=== PATIENT | female | born 1960 | race Caucasian/White ===

== ENCOUNTER 2016-11-29 18:14 | Emergency (ER) | payer MEDICARE, MEDICAID ==
[2016-11-29 18:34] VITALS: BP 120/84
[2016-11-29] MEDS ORDERED: Sodium Chloride 0.9% 10 ML Syringe FLUSH PRN (19:04)
[2016-11-29] MEDS ORDERED: Alum Hydrox/Mag Hydrox/Simeth 30 ML, Lidocaine 2% 15 ML PO ONE ×2 (19:05)
[2016-11-29] MEDS ORDERED: Ondansetron 4 MG/2 ML SDV IVPUSH ONE (19:05)
--- NOTE | 2016-11-29 19:11 | EDM.PDOC ---
ED HPI GENERAL MEDICAL PROBLEM - General Chief Complaint: Abdominal Pain Stated Complaint: ABDOMINAL PAIN Time Seen by Provider: 11/29/16 18:55 Source of Information: Reports: Patient History Limitations: Reports: No Limitations - History of Present Illness INITIAL COMMENTS - FREE TEXT/NARRATIVE: 55 year old female presents for evaluation and treatment of epigastric pain. Reports pain for several weeks. She saw her primary care provider about one week was prescribed some Zofran for nausea. She reports associated symptoms of nausea and vomiting. Which has been vomiting one to 2 times per week. She states over the last few days her epigastric pain has worsened. She states that today she had lunch with friend. She had a few cocktails with lunch and states that this significantly increased the epigastric pain. She describes this as a stabbing pain. Last intake was around 2:30 or 3 this afternoon. She took some nausea medications prior to arrival in the ER. She denies any fevers, chest pain , shortness of breath or diarrhea. His past medical history of acid reflux. She has had this evaluated before with an EGD. She has had a colonoscopy before. Patient also reports past medical history of chronic neck and back pain. She also has a history of fibromyalgia. Location: Reports: Abdomen (epigastric) epigastric Pain Score (Numeric/FACES): 8 - Related Data Allergies Allergy/AdvReac Type Severity Reaction Status Date / Time No Known Allergies Allergy Verified 11/29/16 18:34 Home Meds: Home Meds Gabapentin [Gabapentin] 1 tab PO ASDIRECTED 11/29/16 [History] Hydrocodone/Acetaminophen [Hydrocodon-Acetaminophn 10-325] 1 - 2 tab PO Q6H [History] Morphine [MS Contin] 15 mg PO Q12HR 11/29/16 [History] Rivaroxaban [Xarelto] 1 tab PO BEDTIME 11/29/16 [History] atorvaSTATin Calcium [Atorvastatin Calcium] 1 tab PO DAILY 11/29/16 [History] clonazePAM [Clonazepam] 1 tab PO BID 11/29/16 [History] tiZANidine [Zanaflex] 4 mg PO Q8H 11/29/16 [History] Past Medical History Cardiovascular History: Reports: High Cholesterol, Other (See Below) Other Cardiovascular History: right heart failure 2007 Respiratory History: Reports: Bronchitis, Recurrent Gastrointestinal History: Reports: GERD, Other (See Below) Other Gastrointestinal History: chronic nausea Genitourinary History: Reports: UTI, Recurrent, Other (See Below) Other Genitourinary History: Kidney failure 2007 Musculoskeletal History: Reports: Fibromyalgia, Neck Pain, Chronic, SLE Neurological History: Reports: Headaches, Chronic, Other (See Below) Other Neuro History: cluster headaches Psychiatric History: Reports: Anxiety Hematologic History: Reports: Other (See Below) Other Hematologic History: Xarelto use Immunologic History: Reports: SLE - Past Surgical History Female Surgical History: Reports: Hysterectomy Musculoskeletal Surgical History: Reports: Other (See Below) Other Musculoskeletal Surgeries/Procedures:: L4-L5, scoliosis, deteriorated disc , neck surgery C5,6,7 in December 2015 Social & Family History - Family History Family Medical History: Noncontributory - Tobacco Use Smoking Status *Q: Current Every Day Smoker Years of Tobacco use: 30 Packs/Tins Daily: 0.5 - Caffeine Use Caffeine Use: Reports: Coffee - Recreational Drug Use Recreational Drug Use: No ED ROS GENERAL - Review of Systems Review Of Systems: See Below Constitutional: Denies: Fever Respiratory: Denies: Shortness of Breath Cardiovascular: Denies: Chest Pain GI/Abdominal: Reports: Abdominal Pain (epigastric), Nausea, Vomiting (1-2 per week). Denies: Diarrhea Musculoskeletal: Reports: Neck Pain (chronic), Back Pain (chronic) ED EXAM, GI/ABD - Physical Exam Exam: See Below Exam Limited By: No Limitations General Appearance: Alert, WD/WN, No Apparent Distress, Severe Distress, Other ( smells of alcohol) Respiratory/Chest: No Respiratory Distress, Lungs Clear, Normal Breath Sounds Cardiovascular: Normal Peripheral Pulses, Regular Rate, Rhythm, No Murmur GI/Abdominal: Normal Bowel Sounds, Soft, Guarding, Other (epigastric tenderness) Course - Vital Signs Last Recorded V/S: Last Vital Signs Temp 36.4 C 11/29/16 18:25 Pulse 81 11/29/16 18:25 Resp 16 11/29/16 18:25 BP 120/84 11/29/16 18:25 Pulse Ox 96 11/29/16 18:25 - Orders/Labs/Meds Orders: Active Orders 24 hr Category Date Time Status Cardiac Monitoring [RC] . DIRECTED Care 11/29/16 19:05 Active EKG 12 Lead [EKG Documentation Completion] [RC] STAT Care 11/29/16 19:04 Active Peripheral IV Care [RC] . DIRECTED Care 11/29/16 19:04 Active Blood Alcohol [ETHANOL BLOOD MEDICAL] [CHEM] Stat Lab 11/29/16 19:04 Ordered C-REACTIVE PROTEIN [CHEM] Stat Lab 11/29/16 19:04 Ordered CBC WITH AUTO DIFF [HEME] Stat Lab 11/29/16 19:04 Ordered COMPREHENSIVE METABOLIC PN,CMP [CHEM] Stat Lab 11/29/16 19:04 Ordered LIPASE [CHEM] Stat Lab 11/29/16 19:04 Ordered Peripheral IV Insertion Adult [OM.PC] Routine Oth 11/29/16 19:04 Ordered Meds: Medications Discontinued Medications Generic Name Dose Route Start Last Admin Trade Name Freq PRN Reason Stop Dose Admin Al Hydroxide/Mg Hydroxide 30 0 ml 11/29/16 19:05 ml/ Lidocaine HCl 15 ml PO 11/29/16 19:06 ONETIME ONE Ondansetron HCl 4 mg 11/29/16 19:05 Zofran IVPUSH 11/29/16 19:06 ONETIME ONE Sodium Chloride 10 ml 11/29/16 19:04 Saline Flush FLUSH ASDIRECTED PRN Keep Vein Open - Re-Assessments/Exams Free Text/Narrative Re-Assessment/Exam: 11/29/16 19:12 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 She wants to sign out AMA. She lives in [place] therefore to return to the ER will take a few hours. She has not had any imaging, EKG or labs done. Patient signed out AMA. Departure - Departure Time of Disposition: 19:15 Disposition: Against Medical Advice 07 Condition: undetermined Clinical Impression: Epigastric abdominal pain - Discharge Information Referrals: Jose Ramírez PA-C [Primary Care Provider] - Forms: ED Department Discharge Additional Instructions: Unfortunately, the patient left AMA before any labs or imaging could be performed. Unsure of the exact etiology of her epigastric pain at this time. - My Orders Last 24 Hours: My Active Orders 11/29/16 19:04 EKG 12 Lead [EKG Documentation Completion] [RC] STAT Peripheral IV Care [RC] . DIRECTED Blood Alcohol [ETHANOL BLOOD MEDICAL] [CHEM] Stat C-REACTIVE PROTEIN [CHEM] Stat CBC WITH AUTO DIFF [HEME] Stat COMPREHENSIVE METABOLIC PN,CMP [CHEM] Stat LIPASE [CHEM] Stat Peripheral IV Insertion Adult [OM.PC] Routine 11/29/16 19:05 Cardiac Monitoring [RC] . DIRECTED - Assessment/Plan Last 24 Hours: My Active Orders 11/29/16 19:04 EKG 12 Lead [EKG Documentation Completion] [RC] STAT Peripheral IV Care [RC] . DIRECTED Blood Alcohol [ETHANOL BLOOD MEDICAL] [CHEM] Stat C-REACTIVE PROTEIN [CHEM] Stat CBC WITH AUTO DIFF [HEME] Stat COMPREHENSIVE METABOLIC PN,CMP [CHEM] Stat LIPASE [CHEM] Stat Peripheral IV Insertion Adult [OM.PC] Routine 11/29/16 19:05 Cardiac Monitoring [RC] . DIRECTED
== END 2016-11-29 19:15 | disposition left against medical advice (07) ==
LOC: JD.ED 18:14
DX: R10.13 Epigastric pain (principal); E78.00 Pure hypercholesterolemia, unspecified; F41.9 Anxiety disorder, unspecified; M32.9 Systemic lupus erythematosus, unspecified; Z90.710 Acquired absence of both cervix and uterus; Z98.890 Other specified postprocedural states; F17.210 Nicotine dependence, cigarettes, uncomplicated; Z79.899 Other long term (current) drug therapy
CPT/HCPCS: 99284